=== PATIENT | female | born 1955 | race Caucasian/White ===

== ENCOUNTER 2019-08-04 15:35 | Emergency (ER) | payer MEDICARE, OTHER, SELFPAY ==
[2019-08-04 15:37] VITALS: BP 122/73; PULSE 81; RESP 16; TEMP 36.6; O2SAT 94; BMI 34.1
[2019-08-04] MEDS: Ondansetron ODT 4 MG Tablet PO (15:59)
[2019-08-04] MEDS: fentaNYL 100 MCG/2 ML Ampul 50 MCG IM (16:00)
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
[2019-08-04 16:50] VITALS: RESP 18
== END 2019-08-04 17:33 | disposition home or self-care (01) ==
PROVIDERS: Emergency Provider Emergency Medicine
DX: M25.512 Pain in left shoulder (principal); W17.89XA Other fall from one level to another, initial encounter
CPT/HCPCS: 73030; 90471; 96372; 99284